=== PATIENT | male | born 1980 | race Caucasian/White ===

== ENCOUNTER 2021-08-31 10:49 | Emergency (ER) | payer MEDICAID, SELFPAY ==
--- NOTE | ~2021-08-31 | CT_ITS ---
EXAMINATION: CT HEAD WITHOUT CONTRAST CLINICAL INFORMATION: Left frontal headaches with exertion, persistent COMPARISON: None TECHNIQUE: Contiguous axial imaging was performed from the skull base to vertex without intravenous administration of contrast. This CT examination was performed using dose optimization techniques as appropriate, variously including the following: *Automated exposure control *Adjustment of mA and/or kV according to patient size (this includes techniques or standardized protocols for targeted exams where dose is matched to indication/reason for exam; i.e. extremities or head) *Use of iterative reconstruction technique DLP: 740 mGy-cm FINDINGS: There is no evidence of acute intracranial hemorrhage or territorial infarction. No abnormal mass effect or midline shift is seen. Chao to white matter differentiation is well preserved. No extra-axial fluid collections are identified. The ventricles are normal in size. There is no abnormal attenuation within the brain parenchyma. The osseous structures and soft tissues are normal. Mild polypoid mucosal disease of the maxillary, ethmoid and sphenoid sinuses. Frontal sinuses are well aerated as are the mastoid air cells. CT/CT head/brain wo con IMPRESSION: No acute intracranial pathology.
[2021-08-31 11:18] VITALS: BP 134/88; PULSE 63; RESP 18; TEMP 36.6; O2SAT 98; BMI 31.5
[2021-08-31] MEDS: Fluorescein Sodium STRIP 1 STRIP EYE-LEFT (12:01)
[2021-08-31] MEDS: Tetracaine HCl/PF 0.5% Oph Sol 4 ML DROPS 3 DROP EYE-LEFT (12:01)
--- NOTE | 2021-08-31 12:03 | ED.EYEPROB ---
HPI - Eye Problem General Chief complaint: Eye Problems Stated complaint: severe pain over l eye Time Seen by Provider: 08/31/21 11:32 Source: patient Mode of arrival: ambulatory Limitations: no limitations History of Present Illness HPI Narrative: Patient presents to the emergency department for evaluation of pain/pressure above his left eye. He reports that 3 weeks ago he had a piece of saw dust that got into his eye, he was evaluated by an eye doctor was advised that he had an abrasion, was given eye drops for 2 weeks. He was subsequently re-evaluated by the eye doctor was told that everything was healed. He is now reporting progressively worsening pain/pressure of above his left eye that occurs with exertion such as with walking the stairs, during sexual intercourse, heavy lifting. Pain at times can last anywhere from a few minutes to a few hours, and seems to be unchanged by Tylenol or ibuprofen. Denies vision changes, ear pain, neck pain, dizziness or lightheadedness, numbness or tingling to the face, chest pain, palpitations, shortness of breath, difficulty breathing. Denies any history of Lyme disease, reports that he did have a tick on his abdomen about 3-4 weeks ago but was not embedded or engorged. Related Data Allergies Allergy/AdvReac Type Severity Reaction Status Date / Time penicillin V Allergy Unknown Verified 06/08/18 00:00 Review of Systems Review of Systems: Constitutional: No weight loss, fever, chills, weakness or fatigue. HEENT: No visual loss, blurred vision, double vision or yellow sclera. No hearing loss, sneezing, congestion, runny nose or sore throat. Skin: No rash or itching. Cardiovascular: No chest pain, chest pressure or chest discomfort. No palpitations or pedal edema. Respiratory: No shortness of breath, cough or sputum production. Gastrointestinal: No anorexia, nausea, vomiting or diarrhea. No abdominal pain Genitourinary: No burning micturition. No urinary frequency or incontinence. Neurologic: Positive headache No dizziness, syncope, unilateral weakness, ataxia, numbness or tingling in the extremities. No change in bowel or bladder control. Musculoskeletal: No muscle pain, back pain, joint pain or stiffness. Hematologic: No bleeding or bruising.. Endocrine: No polyuria or polydipsia. Yes all other systems are reviewed and are negative [facility] Past Medical History Attestation statement: The following information was validated with the patient. Source: old records reviewed Social History Social History Advance Directives: No Advance Directives Information Provided: No Physical Exam Vital Signs: Vital Signs: Last Vital Signs Temp 97.9 F 08/31/21 11:18 Pulse 63 08/31/21 11:18 Resp 18 08/31/21 11:18 BP 134/88 08/31/21 11:18 Pulse Ox 98 08/31/21 11:18 BMI result Body Mass Index 31.5 Vital signs have been reviewed as normal and appeared to be correct. Blood pressure normal.? Heart rate normal.? Respiration rate normal. Temperature normal.? Oxygen saturation normal. Appearance: Alert.?Oriented to person, place and time. No acute distress.?Normal affect. Eyes: Pupils equal, round and reactive to light.?EOMi. No Nystagmus. Timmy-Pen intra-ocular pressure and the left 11, right 10 ENT: Pharynx normal.?? Neck: Normal inspection.? Neck supple.?? CVS: Heart sounds normal. Normal heart rate and rhythm.? Pulses normal.?? Respiratory: No respiratory distress.? Lung sounds clear to auscultation bilaterally?? Abdomen: Soft and non-tender. ? Skin: Skin warm and dry.? Normal skin color. Extremities: No lower extremity edema.? Neuro: Moves all extremities spontaneously. Sensation intact bilaterally. CN II-XII intact. No focal neuro deficits. Ambulates with normal steady gait. Course Course Course Narrative: Patient is a 40-year-old male with a past medical history of recent corneal abrasion presenting for evaluation of pressure/pain above the left eye that is provoked strictly by exertion and no additional associated symptoms. Will assess and for pressure, sources staining given recent corneal abrasion. CT of the head. Serum labs including CBC, BMP, ESR and CRP. Reevaluation(s) Reevaluation #1: CT imaging reveals no acute intracranial pathology Intra-ocular pressure is normal. Fluoroscein staining reveals no acute corneal abrasion. CBC is overall unremarkable. BMP normal. CRP normal. ESR normal. Overall patient is well-appearing, without any neurological deficits, hemodynamically stable. He is without symptoms at this time. It is unclear the exact cause of his head pain/pressure. However, I discussed outpatient follow-up with his primary care provider within 5 days, and advised reasons to return back to the emergency department. All questions were answered and patient is agreeable with plan of care. Patient discharged home in stable condition. Time: 14:21 MDM - Eye Problem Medical Records Attestation: I reviewed the patient's medical records. Lab Data Attestation: I reviewed the patient's lab results. Result diagrams: 08/31/21 12:23 08/31/21 12:23 Labs: Lab Results 08/31/21 08/31/21 08/31/21 Range/Units 12:23 12: 13:39 WBC 4.7 L (4.8-10.8) X10*3/uL RBC 4.91 (4.60-5.80) X10*6/uL Hgb 15.8 (14.0-18.0) g/dl Hct 46.2 (42.0-52.0) % MCV 94.1 (80.0-98.0) fL MCH 32.2 (27.0-33.0) pg MCHC 34.2 (31.0-36.0) g/dl RDW 13.0 (11.0-16.0) % Plt Count 172 (160-400) X10*3/uL MPV 10.4 (9.4-12.4) fL Immature Gran % (Auto) 0.2 (0.0-0.4) % Neut % (Auto) 67.8 (45-73) % Lymph % (Auto) 25.0 (20-40) % Hardin % (Auto) 6.2 (2-11) % Eos % (Auto) 0.4 (0-4) % Baso % (Auto) 0.4 (0-2) % Lymph # (Auto) 1.2 (1.2-4.9) X10*3/uL Hardin # (Auto) 0.3 (0.1-1.2) X10*3/uL Eos # (Auto) 0.0 (0.0-0.4) X10*3/uL Baso # (Auto) 0.0 (0.0-0.2) X10*3/uL Abs Immat Gran (auto) 0.01 (0.00-0.03) X10*3/uL Absolute Neuts (auto) 3.2 (2.0-8.3) x10*3/uL Absolute Nucleated RBC 0.000 (0.0-0.012) X10*3/uL Nucleated RBC % (auto) 0.0 (0.0-0.2) /100WBC ESR 2 (0-15) MM/HR Sodium 142 (135-145) mmol/L Potassium 4.4 (3.3-5.1) mmol/L Chloride 106 (96-108) mmol/L Carbon Dioxide 28 (22-29) mmol/L Anion Gap 12 (12-20) BUN 9 (9-16) mg/dL Creatinine 1.12 (0.5-1.4) mg/dL Estim Creat Clear Calc 105.8 Estimated GFR > 60 Random Glucose 100 (60-115) mg/dL Calcium 9.5 (8.4-10.2) mg/dL C-Reactive Protein 0.06 (< or = 0.50) mg/dL Imaging Data CT scan - head: Radiologist's impression: CT/CT head/brain wo con IMPRESSION: No acute intracranial pathology. Discharge Plan Discharge Clinical Impression: Headache Patient Disposition: Home, Self-Care Instructions: Acute Headache (ED) Additional Instructions: You were evaluated in the emergency department today regarding head pain/pressure above your left eye that is caused with exertion. We did blood work including a CBC, BMP, and checked inflammatory markers including ESR and CRP all of which were normal. You had a CT without contrast of your head which was all normal. Your intra-ocular pressure was normal. left eye was re-evaluated in there is no concerns for any new or worsening corneal abrasion. As advised, please follow-up with your primary care provider within 5 days. You may return to the emergency department with any new or worsening symptoms or concerns.
[2021-08-31 12:37] LABS: MANUAL DIFF FLAG NO
[2021-08-31 12:53] LABS: Basophils Percent Auto 0.4 % (0-2); Eosinophils Percent Auto 0.4 % (0-4); Hematocrit 46.2 % (42.0-52.0); Hemoglobin 15.8 g/dl (14.0-18.0); Imm Gran Abs Auto 0.01 X10*3/uL (0.00-0.03); Imm Gran Pct Auto 0.2 % (0.0-0.4); Lymphocytes Absolute Auto 1.2 X10*3/uL (1.2-4.9); Mean Corpuscular HGB Conc 34.2 g/dl (31.0-36.0); Mean Corpuscular Hemoglobin 32.2 pg (27.0-33.0); Mean Corpuscular Volume 94.1 fL (80.0-98.0); Mean Platelet Volume 10.4 fL (9.4-12.4); Monocytes Absolute Auto 0.3 X10*3/uL (0.1-1.2); Monocytes Percent Auto 6.2 % (2-11); Neutrophils Absolute Auto 3.2 x10*3/uL (2.0-8.3); Neutrophils Percent Auto 67.8 % (45-73); Platelet Count 172 X10*3/uL (160-400); Red Blood Count 4.91 X10*6/uL (4.60-5.80); White Blood Count 4.7 X10*3/uL (4.8-10.8)
[2021-08-31 13:09] LABS: Anion Gap 12 (12-20); Blood Urea Nitrogen 9 mg/dL (9-16); C Reactive Protein 0.06 mg/dL (< or = 0.50); Calcium 9.5 mg/dL (8.4-10.2); Carbon Dioxide 28 mmol/L (22-29); Chloride 106 mmol/L (96-108); Creatinine Clr Calc Pharmacy 105.8; Estimated Glomerular Filt Rate > 60; Glucose Random 100 mg/dL (60-115); Potassium 4.4 mmol/L (3.3-5.1); Sodium 142 mmol/L (135-145)
[2021-08-31 14:18] LABS: Erythrocyte Sedimentation Rate 2 MM/HR (0-15)
== END 2021-08-31 15:09 | disposition home or self-care (01) ==
PROVIDERS: Nurse Practitioner Family; Emergency Provider Emergency Medicine
DX: H57.12 Ocular pain, left eye (principal); R51.9 Headache, unspecified; Z79.899 Other long term (current) drug therapy
CPT/HCPCS: 36415; 70450; 80048; 85025; 85652; 86140; 99284